=== PATIENT | male | born 1995 | race Caucasian/White ===

== ENCOUNTER 2018-02-05 10:27 | Emergency (ER) | payer MEDICAID ==
[~2018-02-05] VITALS: Ht 172.7 cm; Wt 59.0 kg
--- NOTE | 2018-02-05 11:00 | NUR ---
PATIENT IS A/A/O X3 IN NO DISTRESS.
[2018-02-05] MEDS ORDERED: IV NORMAL SALINE 1000 ML BAG IV ONE (11:15)
[2018-02-05 11:30] LABS: BASOPHILS % (AUTO) 0.3 % (0.0-2.0); EOSINOPHILS % (AUTO) 0.3 % (0.0-7.0); HEMATOCRIT 50.7 % (36.7-47.1); HEMOGLOBIN 17.2 g/dL (12.5-16.3); LYMPHOCYTES # (AUTO) 0.7 K/uL (20.0-40.0); LYMPHOCYTES % (AUTO) 12.9 % (20.5-51.5); MEAN CORPUSCULAR HEMOGLOBIN 32.3 uug (23.8-33.4); MEAN CORPUSCULAR HGB CONC 34 g/dL (32.5-36.3); MEAN CORPUSCULAR VOLUME 95.2 fL (73.0-96.2); MONOCYTES # (AUTO) 0.7 K/uL (2.0-10.0); MONOCYTES % (AUTO) 11.7 % (0.0-11.0); NEUTROPHILS # (AUTO) 4.3 K/uL (1.8-8.9); NEUTROPHILS % (AUTO) 74.8 % (38.5-71.5); PLATELET COUNT (AUTO) 156 K/uL (152-348); RED BLOOD CELL COUNT(AUTO) 5.33 MIL/uL (4.06-5.63); WHITE BLOOD COUNT (AUTO) 5.7 K/uL (3.6-10.2)
[2018-02-05 11:37] LABS: CREATININE 0.9 mg/dL (0.6-1.3); POTASSIUM 4.1 mmol/L (3.5-5.1)
[2018-02-05] MEDS ORDERED: IOHEXOL 350 100 ML INFUS..BTL ONE (11:38)
[2018-02-05] MEDS ORDERED: SWABABLE VALVE TRANSFER SET EA MC ONE (11:38)
[2018-02-05] MEDS ORDERED: NORMAL SALINE FLUSH 10 ML DISP.SYRIN ONE (11:38)
[2018-02-05] MEDS ORDERED: IV NORMAL SALINE 250 ML IV ONE (11:38)
[2018-02-05 11:43] LABS: BILIRUBIN,DIRECT 0.3 mg/dL (0.0-0.2)
[2018-02-05 11:54] LABS: *BILIRUBIN,URIN NEGATIVE (NEGATIVE); *BLOOD, URINE NEGATIVE (NEGATIVE); *CLARITY,URINE CLEAR (CLEAR); *COLOR,URINE YELLOW (YELLOW); *KETONES,URINE NEGATIVE (NEGATIVE); *PROTEIN,URINE NEGATIVE (NEGATIVE); LEUKOCYTE ESTERASE ,URINE NEGATIVE (NEGATIVE); NITRITE, URINE NEGATIVE (NEGATIVE); UGLUCOSE NEGATIVE (NEGATIVE)
[2018-02-05 12:11] LABS: BACTERIA,URINE NONE SEEN /HPF (NONE SEEN); RBC,URINE NONE SEEN /HPF (0-3); SQUAMOUS EPITHELIAL CELL,UR NONE SEEN /HPF (NONE SEEN); WBC,URINE NONE SEEN /HPF (0-3)
--- NOTE | 2018-02-05 12:38 | NUR ---
AWAITING CT RESULTS.
--- NOTE | 2018-02-05 13:14 | NUR ---
IV removed. Catheter intact and site benign. Pressure and 4x4 gauze applied to site. No bleeding noted.
--- NOTE | 2018-02-05 13:14 | NUR ---
DC AND FOLLOW UP INSTRUCTIONS GIVEN AND EXPLAINED TO PATIENT WHO STATES HE UNDERSTANDS ALL INSTRUCTIONS.
== END 2018-02-05 13:18 | disposition home or self-care (01) ==
LOC: ER 10:27
DX: K63.89 Other specified diseases of intestine (principal); R10.31 Right lower quadrant pain; R42 Dizziness and giddiness; R06.02 Shortness of breath
CPT/HCPCS: 36415; 70496; 74177; 80048; 80076; 81001; 83690; 84484; 85025; 93005; 96360; 99284; Q9967; 70030-TC; A4663; J3490; J7030; J7050

== ENCOUNTER 2019-02-17 01:15 | Emergency (ER) | payer SELFPAY ==
[~2019-02-17] VITALS: Ht 172.7 cm; Wt 61.2 kg
--- NOTE | 2019-02-17 01:25 | NUR ---
Dr. Arredondo at bedside for MSE
--- NOTE | 2019-02-17 02:10 | NUR ---
Patient discharged to home in stable conditon. Written and verbal after care instructions given. Patient verbalizes understanding of instructions. Patient ambulating with steady gait
[2019-02-17 02:14] VITALS: BP 118/66
[2019-02-17] MEDS ORDERED: IV NORMAL SALINE 1000 ML BAG IV ONE (02:15)
== END 2019-02-17 02:07 | disposition home or self-care (01) ==
LOC: ER 01:19
DX: S06.0X0A Concussion without loss of consciousness, initial encounter (principal); M54.2 Cervicalgia; F17.200 Nicotine dependence, unspecified, uncomplicated; W18.30XA Fall on same level, unspecified, initial encounter; Y93.89 Activity, other specified; Y92.89 Other specified places as the place of occurrence of the external cause; Y99.8 Other external cause status
CPT/HCPCS: 70450; A4663